=== PATIENT | male | born 1940 | race Caucasian/White ===

== ENCOUNTER 2018-02-11 12:14 | Inpatient (IN) ==
[2018-02-11] MEDS ORDERED: ZALEPLON 5 MG CAPSULE PO PRN (12:19)
[2018-02-11] MEDS ORDERED: MAGNESIUM SULF RIDER 4 GM in PREMIX 1 EACH IV PRN (12:19)
[2018-02-11] MEDS ORDERED: MAGNESIUM SULF RIDER 2 GM in PREMIX 1 EACH IV PRN (12:19)
[2018-02-11] MEDS ORDERED: ONDANSETRON 4 MG/2 ML VIAL IV PRN (12:19)
[2018-02-11] MEDS ORDERED: ACETAMINOPHEN 325 MG TABLET PO PRN (12:19)
[2018-02-11] MEDS ORDERED: PNEUMOCOCCAL VACCINE (13 VALENT) 0.5 ML SYRINGE IM ONE (14:30)
[2018-02-11] MEDS ORDERED: INFLUENZA VIRUS VACCINE 0.5 ML SYRINGE IM ONE (14:30)
[2018-02-11] MEDS: APIXABAN 5 MG TABLET PO SCH ×2 (14:34→21:39)
[2018-02-11] MEDS: dilTIAZem Drip 125 MG/125 ML PREMIX IV SCH (14:36)
[2018-02-11 16:25] LABS: Basophils % 0.2 % (0.0-0.8); Eosinophils # 0.1 10*3/uL (0.0-0.87); Eosinophils % 0.7 % (0.00-10.9); Hematocrit 40.2 VOL% (42.0-52.0); Hemoglobin 12.9 GM/DL (14.0-18.0); Immature Granulocytes % 0.5 %; Immature Granulocytes Absolute 0.04 #; Lymphocytes # 1.4 10*3/uL (1.4-4.0); Lymphocytes % 16.2 % (21.2-54.2); Mean Corpuscular HGB Conc 32.1 GM/DL (32-36); Mean Corpuscular Hemoglobin 33 PG (27-34); Mean Corpuscular Volume 102.8 FL (87-102); Mean Platelet Volume 10.7 FL (9.6-12.0); Monocytes # 0.6 10*3/uL (0.11-0.8); Monocytes % 6.8 % (1.7-12.7); Neutrophils # 6.5 10*3/uL (1.4-7.4); Neutrophils % 75.6 % (38.7-73.9); Platelet Count 106 T/CUMM (130-400); Red Blood Count 3.91 MC/CUMM (3.8-5.5); Red Cell Distribution Width 13.6 % (9.3-17.3); White Blood Count 8.6 T/CUMM (4-12)
[2018-02-11 17:02] LABS: Calcium 8.8 MG/DL (8.5-10.1); Osmolality,Calculated 284.1 MOS/KG (273-304); Risk Ratio 2.27; Thyroid Stimulating Hormone 1.04 uIU/ml (0.358-3.74); VLDL CHOLESTEROL 12.2 MG/DL
[2018-02-11 20:53] LABS: Apearance,Urine CLEAR (Clear); Bacteria,Urine Occasional /HPF (Few); Bilirubin,Urine Negative (Negative); Blood, Urine Negative (Negative); Glucose,Urine (UA) Negative (Negative); Hyaline Casts,Urine 4 /LPF (0-3); Ketones,Urine 5 mg/dL (Negative); Mucus,Urine Occasional /LPF (Occasional); Nitrite,Urine Negative (Negative); Protein,Urine Negative; Squamous Epithelial Cell,Urine Occasional /HPF (0-10); Urine Color Yellow (Yellow); Urine Specific Gravity 1.023 (1.001-1.035); Urine Urobilinogen < 2.0 EU/DL (0.2-1.0); WBC,Urine 1 /HPF (0-6)
[2018-02-11] MEDS ORDERED: PRAVASTATIN 40 MG TABLET PO SCH (21:00)
[2018-02-11] MEDS: METOPROLOL TARTRATE 25 MG TABLET PO SCH (21:40)
[2018-02-11] MEDS: DILTIAZEM 30 MG TABLET PO SCH (21:40)
[2018-02-12] MEDS: PANTOPRAZOLE 40 MG TABLET PO SCH (08:46)
[2018-02-12] MEDS: APIXABAN 5 MG TABLET PO SCH (08:46)
[2018-02-12] MEDS: DILTIAZEM 30 MG TABLET PO SCH ×3 (08:46→20:52)
[2018-02-12] MEDS: METOPROLOL TARTRATE 25 MG TABLET PO SCH ×2 (08:46→20:52)
[2018-02-12] MEDS: ASPIRIN EC 81 MG TABLET PO SCH (08:46)
[2018-02-12] MEDS ORDERED: POTASSIUM CHLORIDE RIDER 10 MEQ in PREMIX 1 EACH IV PRN (09:32)
[2018-02-12] MEDS ORDERED: MAGNESIUM SULF RIDER 2 GM in PREMIX 1 EACH IV PRN (09:32)
[2018-02-12] MEDS: NICOTINE 21 MG/24 HR PATCH TRANSDERM SCH (09:38)
[2018-02-12] MEDS ORDERED: SODIUM CHLORIDE 0.9% 1,000 ML IV SCH (10:00)
[2018-02-12] MEDS: PRAVASTATIN 40 MG TABLET PO SCH (11:25)
[2018-02-12] MEDS ORDERED: diphenhydrAMINE CAP 25 MG CAPSULE PO ONE (13:00)
[2018-02-12] MEDS ORDERED: DIAZEPAM 5 MG TABLET PO ONE (13:00)
[2018-02-12] MEDS: dilTIAZem Drip 125 MG/125 ML PREMIX IV SCH (13:06)
[2018-02-12] MEDS ORDERED: NITROGLYCERIN DRIP 50 MG/250 ML BOTTLE IV ONE (13:17)
[2018-02-12] MEDS ORDERED: MIDAZOLAM 2 MG/2 ML VIAL ONE ×2 (13:17→14:39)
[2018-02-12] MEDS ORDERED: LIDOCAINE 1% 20 ML VIAL ONE (13:17)
[2018-02-12] MEDS ORDERED: HEPARIN/NACL 0.9% 2 UNITS/ML 1,000 ML IV ONE (13:17)
[2018-02-12] MEDS ORDERED: fentaNYL 100 MCG/2 ML VIAL ONE ×2 (13:18→14:39)
[2018-02-12] MEDS ORDERED: VERAPAMIL 5 MG/2 ML VIAL ONE (13:18)
[2018-02-12] MEDS ORDERED: LIDOCAINE 2% 5 ML VIAL ONE (14:39)
[2018-02-12] MEDS ORDERED: PHENYLEPHRINE 1 MG/10 ML SYRINGE IV ONE (14:39)
[2018-02-12] MEDS ORDERED: PROPOFOL 200 MG/20 ML VIAL IV ONE (14:40)
[2018-02-13 04:07] LABS: Basophils % 0.2 % (0.0-0.8); Eosinophils # 0.1 10*3/uL (0.0-0.87); Eosinophils % 1.4 % (0.00-10.9); Hematocrit 37.4 VOL% (42.0-52.0); Hemoglobin 12.2 GM/DL (14.0-18.0); Immature Granulocytes % 0.5 %; Immature Granulocytes Absolute 0.04 #; Lymphocytes # 1.3 10*3/uL (1.4-4.0); Lymphocytes % 14.8 % (21.2-54.2); Mean Corpuscular HGB Conc 32.6 GM/DL (32-36); Mean Corpuscular Hemoglobin 33 PG (27-34); Mean Corpuscular Volume 101.4 FL (87-102); Mean Platelet Volume 11.3 FL (9.6-12.0); Monocytes # 0.7 10*3/uL (0.11-0.8); Monocytes % 7.8 % (1.7-12.7); Neutrophils # 6.5 10*3/uL (1.4-7.4); Neutrophils % 75.3 % (38.7-73.9); Red Blood Count 3.69 MC/CUMM (3.8-5.5); Red Cell Distribution Width 13.3 % (9.3-17.3); White Blood Count 8.6 T/CUMM (4-12)
[2018-02-13 04:12] LABS: Platelet Count 93 T/CUMM (130-400)
[2018-02-13 04:35] LABS: Calcium 8.5 MG/DL (8.5-10.1); Osmolality,Calculated 281.3 MOS/KG (273-304); Potassium 4.9 MMOL/L (3.5-5.1)
[2018-02-13 08:05] VITALS: BP 163/93
[2018-02-13 08:58] LABS: ABG Base Excess -1.4 MMOL/L (-2.5-2.5); ABG HCO3 23.2 MMOL/L (20-26); ABG Oxygen Saturation 96.3 % (95-100); ABG PCO2 32.6 MM HG (35-48); ABG PH 7.435 (7.35-7.45)
[2018-02-13] MEDS: PRAVASTATIN 40 MG TABLET PO SCH (09:23)
[2018-02-13] MEDS: DILTIAZEM 30 MG TABLET PO SCH (09:24)
[2018-02-13] MEDS: PANTOPRAZOLE 40 MG TABLET PO SCH (09:24)
[2018-02-13] MEDS: METOPROLOL TARTRATE 25 MG TABLET PO SCH (09:24)
[2018-02-13] MEDS: ASPIRIN EC 81 MG TABLET PO SCH (09:24)
[2018-02-13] MEDS: NICOTINE 21 MG/24 HR PATCH TRANSDERM SCH (09:25)
== END 2018-02-13 11:30 | disposition home or self-care, planned readmission (81) | DRG 287 ==
LOC: N.2W 13:17 → INTOOBSV 13:17 → N.TELES 15:19
PROVIDERS: ADMIT Internal Medicine Cardiovascular Disease; ATTEND Internal Medicine Cardiovascular Disease

== ENCOUNTER 2019-02-18 13:14 | Inpatient (IN) ==
[2019-02-18] MEDS ORDERED: SODIUM CHLORIDE 0.9% 1,000 ML IV STA ×2 (13:28→15:32)
[2019-02-18 14:33] LABS: Basophils % 0.2 % (0.0-0.8); Eosinophils % 0.1 % (0.00-10.9); Hematocrit 33.4 VOL% (42.0-52.0); Hemoglobin 10.9 GM/DL (14.0-18.0); Immature Granulocytes Absolute 0.22 #; Lymphocytes # 0.1 10*3/uL (1.4-4.0); Lymphocytes % 1.2 % (21.2-54.2); Mean Corpuscular HGB Conc 32.6 GM/DL (32-36); Mean Corpuscular Volume 99.7 FL (87-102); Monocytes % 0.2 % (1.7-12.7); NRBC # 0.04 10*3/uL; Neutrophils % 96.3 % (38.7-73.9); Platelet Count 111 T/CUMM (130-400); Red Blood Count 3.35 MC/CUMM (3.8-5.5); Red Cell Distribution Width 15.1 % (9.3-17.3); White Blood Count 10.8 T/CUMM (4-12)
[2019-02-18 14:47] LABS: Albumin 2.9 G/DL (3.4-5.0); Bilirubin,Total 1.2 MG/DL (0.2-1.0); Calcium 8.6 MG/DL (8.5-10.1); Osmolality,Calculated 289.8 MOS/KG (273-304); Total Protein 6.2 G/DL (6.4-8.3)
[2019-02-18 15:02] LABS: Hypochromasia 1+; Lymphocytes 5 % (20-55); Microcytosis 1+; Platelet Estimate Adequate; Segmented Neutrophils 94 % (50-85); Total Cells Counted 100
[2019-02-18 15:03] LABS: Anisocytosis Slight
[2019-02-18 15:24] LABS: PT Patient Result 11.2 SECS (9.6-12.2); Partial Thromboplastin Time 26.2 SECS (20.8-36.0)
[2019-02-18 16:02] LABS: Apearance,Urine CLOUDY (Clear); Bilirubin,Urine Negative (Negative); Blood, Urine Large mg/dL (Negative); Glucose,Urine (UA) Negative (Negative); Hyaline Casts,Urine 23 /LPF (0-3); Ketones,Urine Negative (Negative); Nitrite,Urine Positive (Negative); Protein,Urine 100 MG/DL; RBC,Urine 3211 /HPF (0-4); Urine Color Amber (Yellow); Urine Specific Gravity 1.018 (1.001-1.035)
[2019-02-18] MEDS ORDERED: SODIUM CHLORIDE 0.9% 2,150 ML IV ONE (16:27)
[2019-02-18] MEDS ORDERED: SODIUM PHOSPHATE ENEMA 133 ML BOTTLE RECTAL STA (16:29)
[2019-02-18 16:30] LABS: Hepatitis B Core IgM Quant < 0.05 Index; Hepatitis B Surface Ag Quant 0.19 Index; Hepatitis B Surface Ag Result Negative (Negative); Hepatitis C Virus Ab Quant 0.15 Index; Hepatitis C Virus Ab Result Negative (Negative)
[2019-02-18] MEDS ORDERED: VANCOMYCIN INJ 1,000 MG in SODIUM CHLORIDE 0.9% 250 ML IV SCH (16:30)
[2019-02-18] MEDS ORDERED: LACTULOSE 20 GM/30 ML UDCUP PO STA (16:30)
[2019-02-18] MEDS ORDERED: NICOTINE 21 MG/24 HR PATCH TRANSDERM PRN (17:19)
[2019-02-18] MEDS ORDERED: LACTULOSE 20 GM/30 ML UDCUP PO PRN (17:19)
[2019-02-18] MEDS ORDERED: SODIUM CHLORIDE 0.45% 1,000 ML IV SCH (17:30)
[2019-02-18] MEDS ORDERED: PIPERACILLIN/TAZOBACTAM 3,375 MG in SODIUM CHLORIDE 0.9% 100 ML IV ONE (17:30)
[2019-02-18] MEDS: ACETAMINOPHEN 325 MG TABLET PO PRN ×2 (17:43→23:50)
[2019-02-18] MEDS ORDERED: PNEUMOCOCCAL VACCINE (13 VALENT) 0.5 ML SYRINGE IM ONE (19:38)
[2019-02-18] MEDS: DOCUSATE SODIUM 100 MG CAPSULE PO SCH (21:05)
[2019-02-18] MEDS ORDERED: NOREPINEPHRINE 4 MG/4 ML VIAL IV ONE (22:52)
[2019-02-18] MEDS ORDERED: NOREPINEPHRINE 8 MG in SODIUM CHLORIDE 0.9% 242 ML IV PRN (23:00)
[2019-02-19] MEDS: PIPERACILLIN/TAZOBACTAM 3,375 MG in SODIUM CHLORIDE 0.9% 100 ML IV SCH ×2 (01:02→08:08)
[2019-02-19 03:00] LABS: Basophils # 0.1 10*3/uL (0.0-0.2); Basophils % 0.3 % (0.0-0.8); Hematocrit 26.2 VOL% (42.0-52.0); Hemoglobin 8.5 GM/DL (14.0-18.0); Immature Granulocytes % 4.7 %; Immature Granulocytes Absolute 1.63 #; Lymphocytes # 0.3 10*3/uL (1.4-4.0); Mean Corpuscular HGB Conc 32.4 GM/DL (32-36); Mean Corpuscular Volume 100.8 FL (87-102); Mean Platelet Volume 11.5 FL (9.6-12.0); Monocytes % 4.7 % (1.7-12.7); Neutrophils % 89.3 % (38.7-73.9); Platelet Count 95 T/CUMM (130-400); Red Cell Distribution Width 15.4 % (9.3-17.3); White Blood Count 34.4 T/CUMM (4-12)
[2019-02-19 03:11] LABS: Albumin 2.2 G/DL (3.4-5.0); Bilirubin,Total 0.8 MG/DL (0.2-1.0); Calcium 7.6 MG/DL (8.5-10.1); Osmolality,Calculated 288.3 MOS/KG (273-304); Total Protein 5.1 G/DL (6.4-8.3)
[2019-02-19 04:32] LABS: Anisocytosis 1+; Band Neutrophils 19 % (0-10); Lymphocytes 1 % (20-55); Platelet Estimate Decreased; Segmented Neutrophils 79 % (50-85); Total Cells Counted 100
[2019-02-19] MEDS: DOCUSATE SODIUM 100 MG CAPSULE PO SCH ×2 (08:08→21:10)
[2019-02-19] MEDS: AMIODARONE 200 MG TABLET PO SCH (08:08)
[2019-02-19] MEDS: PANTOPRAZOLE 40 MG TABLET PO SCH (08:08)
[2019-02-19] MEDS: MULTIVITAMIN (CENTRUM) TABLET PO SCH (08:08)
[2019-02-19] MEDS: POLYETHYLENE GLYCOL POWDER 17 GM PACK PO SCH (08:27)
[2019-02-19] MEDS: LEVOFLOXACIN INJ 750 MG in PREMIX 1 EACH IV SCH (08:55)
[2019-02-19] MEDS ORDERED: DOCUSATE SODIUM 100 MG CAPSULE PO SCH (09:00)
[2019-02-19] MEDS: MAGNESIUM SULF RIDER 2 GM in PREMIX 1 EACH IV PRN (10:10)
[2019-02-19] MEDS: MEROPENEM 500 MG in SODIUM CHLORIDE 0.9% 100 ML IV SCH ×2 (10:10→18:11)
[2019-02-19] MEDS: LACTATED RINGERS 1,000 ML IV SCH ×2 (10:10→21:36)
[2019-02-20] MEDS: MEROPENEM 500 MG in SODIUM CHLORIDE 0.9% 100 ML IV SCH ×3 (02:42→17:36)
[2019-02-20 05:44] LABS: Basophils # 0.1 10*3/uL (0.0-0.2); Basophils % 0.3 % (0.0-0.8); Eosinophils % 0.1 % (0.00-10.9); Hematocrit 26.3 VOL% (42.0-52.0); Hemoglobin 8.6 GM/DL (14.0-18.0); Immature Granulocytes % 7.1 %; Immature Granulocytes Absolute 1.89 #; Lymphocytes # 0.5 10*3/uL (1.4-4.0); Mean Corpuscular HGB Conc 32.7 GM/DL (32-36); Mean Corpuscular Volume 98.9 FL (87-102); Mean Platelet Volume 11.8 FL (9.6-12.0); Monocytes % 3.4 % (1.7-12.7); Neutrophils % 87.1 % (38.7-73.9); Platelet Count 72 T/CUMM (130-400); Red Blood Count 2.66 MC/CUMM (3.8-5.5); Red Cell Distribution Width 15.6 % (9.3-17.3); White Blood Count 26.8 T/CUMM (4-12)
[2019-02-20 06:17] LABS: Albumin 2.2 G/DL (3.4-5.0); Band Neutrophils 5 % (0-10); Bilirubin,Total 0.6 MG/DL (0.2-1.0); Calcium 8.2 MG/DL (8.5-10.1); Lymphocytes 2 % (20-55); Osmolality,Calculated 286.3 MOS/KG (273-304); Segmented Neutrophils 90 % (50-85); Total Cells Counted 100; Total Protein 5.4 G/DL (6.4-8.3)
[2019-02-20 06:18] LABS: Microcytosis 1+; Ovalocytes Slight; Platelet Estimate Decreased
[2019-02-20] MEDS: AMIODARONE 200 MG TABLET PO SCH (08:04)
[2019-02-20] MEDS: DOCUSATE SODIUM 100 MG CAPSULE PO SCH ×2 (08:04→20:47)
[2019-02-20] MEDS: PANTOPRAZOLE 40 MG TABLET PO SCH (08:04)
[2019-02-20] MEDS: POLYETHYLENE GLYCOL POWDER 17 GM PACK PO SCH ×2 (08:04→10:28)
[2019-02-20] MEDS: MULTIVITAMIN (CENTRUM) TABLET PO SCH (08:04)
[2019-02-20] MEDS: LACTATED RINGERS 1,000 ML IV SCH ×2 (08:18→15:18)
[2019-02-20] MEDS: ACETAMINOPHEN 325 MG TABLET PO PRN (08:37)
[2019-02-20] MEDS ORDERED: PNEUMOCOCCAL VACCINE (13 VALENT) 0.5 ML SYRINGE IM ONE (09:00)
[2019-02-20] MEDS ORDERED: MAGNESIUM HYDROXIDE SUSP 30 ML UDCUP PO ONE (09:46)
[2019-02-20] MEDS ORDERED: BISACODYL 5 MG TABLET PO ONE (09:46)
[2019-02-20] MEDS ORDERED: LACTULOSE 20 GM/30 ML UDCUP PO ONE (09:46)
[2019-02-20] MEDS: METOPROLOL SUCCINATE XL 25 MG TABLET PO SCH (15:17)
[2019-02-20] MEDS: TAMSULOSIN 0.4 MG CAPSULE PO SCH (20:47)
[2019-02-21] MEDS: LACTATED RINGERS 1,000 ML IV SCH ×2 (01:05→14:02)
[2019-02-21] MEDS: MEROPENEM 500 MG in SODIUM CHLORIDE 0.9% 100 ML IV SCH ×2 (01:05→09:39)
[2019-02-21 05:58] LABS: Basophils # 0.1 10*3/uL (0.0-0.2); Basophils % 0.4 % (0.0-0.8); Eosinophils # 0.1 10*3/uL (0.0-0.87); Eosinophils % 0.4 % (0.00-10.9); Hematocrit 24.8 VOL% (42.0-52.0); Hemoglobin 8.3 GM/DL (14.0-18.0); Immature Granulocytes % 1.8 %; Immature Granulocytes Absolute 0.33 #; Lymphocytes # 0.5 10*3/uL (1.4-4.0); Lymphocytes % 2.9 % (21.2-54.2); Mean Corpuscular HGB Conc 33.5 GM/DL (32-36); Mean Corpuscular Volume 97.6 FL (87-102); Mean Platelet Volume 12.1 FL (9.6-12.0); Monocytes % 2.8 % (1.7-12.7); Neutrophils % 91.7 % (38.7-73.9); Red Blood Count 2.54 MC/CUMM (3.8-5.5); White Blood Count 18.1 T/CUMM (4-12)
[2019-02-21 06:01] LABS: Platelet Count 65 T/CUMM (130-400)
[2019-02-21 06:21] LABS: Albumin 1.9 G/DL (3.4-5.0); Bilirubin,Total 0.6 MG/DL (0.2-1.0); Calcium 8.1 MG/DL (8.5-10.1); Osmolality,Calculated 283.3 MOS/KG (273-304)
[2019-02-21 07:14] LABS: Band Neutrophils 1 % (0-10); Eosinophils 2 % (0-10); Hypochromasia 2+; Lymphocytes 3 % (20-55); Platelet Estimate Decreased; Segmented Neutrophils 92 % (50-85); Total Cells Counted 100
[2019-02-21] MEDS: AMIODARONE 200 MG TABLET PO SCH (08:03)
[2019-02-21] MEDS: METOPROLOL SUCCINATE XL 25 MG TABLET PO SCH (08:03)
[2019-02-21] MEDS: POLYETHYLENE GLYCOL POWDER 17 GM PACK PO SCH (08:04)
[2019-02-21] MEDS: DOCUSATE SODIUM 100 MG CAPSULE PO SCH ×2 (08:04→23:22)
[2019-02-21] MEDS: MULTIVITAMIN (CENTRUM) TABLET PO SCH (08:04)
[2019-02-21] MEDS: ACETAMINOPHEN 325 MG TABLET PO PRN ×2 (08:04→19:25)
[2019-02-21] MEDS: PANTOPRAZOLE 40 MG TABLET PO SCH (08:04)
[2019-02-21] MEDS: LEVOFLOXACIN INJ 750 MG in PREMIX 1 EACH IV SCH (08:04)
[2019-02-21] MEDS ORDERED: DILTIAZEM 60 MG TABLET PO SCH (09:00)
[2019-02-21] MEDS: TAMSULOSIN 0.4 MG CAPSULE PO SCH (23:22)
[2019-02-22] MEDS: LACTATED RINGERS 1,000 ML IV SCH ×3 (00:11→20:46)
[2019-02-22] MEDS: ACETAMINOPHEN 325 MG TABLET PO PRN (00:16)
[2019-02-22] MEDS: MULTIVITAMIN (CENTRUM) TABLET PO SCH (09:11)
[2019-02-22] MEDS: METOPROLOL SUCCINATE XL 25 MG TABLET PO SCH (09:13)
[2019-02-22] MEDS: POLYETHYLENE GLYCOL POWDER 17 GM PACK PO SCH ×2 (09:13→21:30)
[2019-02-22] MEDS: PANTOPRAZOLE 40 MG TABLET PO SCH (09:13)
[2019-02-22] MEDS: AMIODARONE 200 MG TABLET PO SCH (09:13)
[2019-02-22] MEDS: DOCUSATE SODIUM 100 MG CAPSULE PO SCH ×2 (09:18→21:26)
[2019-02-22 10:23] LABS: Basophils # 0.1 10*3/uL (0.0-0.2); Basophils % 0.4 % (0.0-0.8); Eosinophils % 0.2 % (0.00-10.9); Hematocrit 22.9 VOL% (42.0-52.0); Hemoglobin 7.7 GM/DL (14.0-18.0); Immature Granulocytes % 2.3 %; Immature Granulocytes Absolute 0.32 #; Lymphocytes # 0.6 10*3/uL (1.4-4.0); Lymphocytes % 3.9 % (21.2-54.2); Mean Corpuscular HGB Conc 33.6 GM/DL (32-36); Mean Corpuscular Volume 97.9 FL (87-102); Monocytes % 5.8 % (1.7-12.7); Neutrophils % 87.4 % (38.7-73.9); Platelet Count 54 T/CUMM (130-400); Red Blood Count 2.34 MC/CUMM (3.8-5.5); Red Cell Distribution Width 15.1 % (9.3-17.3); White Blood Count 14.2 T/CUMM (4-12)
[2019-02-22 10:39] LABS: Osmolality,Calculated 288.8 MOS/KG (273-304)
[2019-02-22 11:01] LABS: Band Neutrophils 2 % (0-10); Hypochromasia 1+; Lymphocytes 4 % (20-55); Segmented Neutrophils 90 % (50-85); Total Cells Counted 100
[2019-02-22 11:04] LABS: Macrocytosis Slight; Platelet Estimate Decreased
[2019-02-22] MEDS: CIPROFLOXACIN INJ 400 MG in PREMIX 1 EACH IV SCH (12:18)
[2019-02-22] MEDS: LACTULOSE 20 GM/30 ML UDCUP PO SCH ×2 (12:19→21:29)
[2019-02-22] MEDS: cefTAZidime 1,000 MG in SYRINGE 1 EACH IV SCH (13:23)
[2019-02-22] MEDS: NORTRIPTYLINE 25 MG CAPSULE PO SCH (21:26)
[2019-02-22] MEDS: TAMSULOSIN 0.4 MG CAPSULE PO SCH (21:26)
[2019-02-23] MEDS: cefTAZidime 1,000 MG in SYRINGE 1 EACH IV SCH ×2 (01:26→12:13)
[2019-02-23] MEDS: CIPROFLOXACIN INJ 400 MG in PREMIX 1 EACH IV SCH ×2 (01:28→12:16)
[2019-02-23 05:32] LABS: Basophils # 0.1 10*3/uL (0.0-0.2); Basophils % 0.6 % (0.0-0.8); Eosinophils # 0.1 10*3/uL (0.0-0.87); Eosinophils % 0.6 % (0.00-10.9); Hematocrit 26.2 VOL% (42.0-52.0); Hemoglobin 8.8 GM/DL (14.0-18.0); Immature Granulocytes % 2.8 %; Lymphocytes # 0.5 10*3/uL (1.4-4.0); Lymphocytes % 4.1 % (21.2-54.2); Mean Corpuscular HGB Conc 33.6 GM/DL (32-36); Mean Corpuscular Volume 96.3 FL (87-102); Neutrophils % 87.9 % (38.7-73.9); Platelet Count 57 T/CUMM (130-400); Red Blood Count 2.72 MC/CUMM (3.8-5.5); White Blood Count 10.9 T/CUMM (4-12)
[2019-02-23 05:56] LABS: Calcium 8.2 MG/DL (8.5-10.1); Osmolality,Calculated 277.5 MOS/KG (273-304)
[2019-02-23 06:39] LABS: Lymphocytes 4 % (20-55); Platelet Estimate Decreased; Polychromasia Few; Segmented Neutrophils 95 % (50-85); Total Cells Counted 100
[2019-02-23] MEDS: ACETAMINOPHEN 325 MG TABLET PO PRN ×2 (07:11→15:59)
[2019-02-23] MEDS: LACTATED RINGERS 1,000 ML IV SCH ×3 (07:11→18:34)
[2019-02-23] MEDS: MULTIVITAMIN (CENTRUM) TABLET PO SCH (08:38)
[2019-02-23] MEDS: LACTULOSE 20 GM/30 ML UDCUP PO SCH ×2 (08:39→23:16)
[2019-02-23] MEDS: DOCUSATE SODIUM 100 MG CAPSULE PO SCH ×2 (08:40→21:14)
[2019-02-23] MEDS: METOPROLOL SUCCINATE XL 25 MG TABLET PO SCH (08:40)
[2019-02-23] MEDS: PANTOPRAZOLE 40 MG TABLET PO SCH (08:40)
[2019-02-23] MEDS: POLYETHYLENE GLYCOL POWDER 17 GM PACK PO SCH ×2 (08:41→23:16)
[2019-02-23 10:18] LABS: Amorphous Crystals,Urine Occasional /HPF (Few); Apearance,Urine CLEAR (Clear); Bacteria,Urine Occasional /HPF (Few); Bilirubin,Urine Negative (Negative); Blood, Urine Negative (Negative); Glucose,Urine (UA) Negative (Negative); Ketones,Urine Negative (Negative); Mucus,Urine Occasional /LPF (Occasional); Nitrite,Urine Negative (Negative); Protein,Urine Negative; RBC,Urine 1 /HPF (0-4); Squamous Epithelial Cell,Urine Occasional /HPF (0-10); Urine Color Yellow (Yellow); Urine Urobilinogen < 2.0 EU/DL (0.2-1.0); WBC,Urine <1 /HPF (0-6)
[2019-02-23] MEDS: MAGNESIUM SULF RIDER 2 GM in PREMIX 1 EACH IV PRN (19:25)
[2019-02-23] MEDS: TAMSULOSIN 0.4 MG CAPSULE PO SCH (21:14)
[2019-02-23] MEDS: NORTRIPTYLINE 25 MG CAPSULE PO SCH (21:14)
[2019-02-24] MEDS: CIPROFLOXACIN INJ 400 MG in PREMIX 1 EACH IV SCH ×2 (01:03→15:10)
[2019-02-24] MEDS: cefTAZidime 1,000 MG in SYRINGE 1 EACH IV SCH ×2 (01:45→15:05)
[2019-02-24] MEDS: LACTATED RINGERS 1,000 ML IV SCH ×2 (06:41→11:12)
[2019-02-24 06:44] LABS: Basophils # 0.1 10*3/uL (0.0-0.2); Basophils % 0.6 % (0.0-0.8); Eosinophils # 0.1 10*3/uL (0.0-0.87); Eosinophils % 0.6 % (0.00-10.9); Hematocrit 22.2 VOL% (42.0-52.0); Hemoglobin 7.3 GM/DL (14.0-18.0); Immature Granulocytes % 2.3 %; Lymphocytes # 0.6 10*3/uL (1.4-4.0); Lymphocytes % 7.5 % (21.2-54.2); Mean Corpuscular HGB Conc 32.9 GM/DL (32-36); Mean Corpuscular Volume 97.4 FL (87-102); Monocytes % 5.3 % (1.7-12.7); Neutrophils % 83.7 % (38.7-73.9); Platelet Count 44 T/CUMM (130-400); Red Blood Count 2.28 MC/CUMM (3.8-5.5); White Blood Count 8.6 T/CUMM (4-12)
[2019-02-24 07:13] LABS: Hypochromasia 1+; Lymphocytes 8 % (20-55); Platelet Estimate Decreased; Segmented Neutrophils 86 % (50-85); Total Cells Counted 100
[2019-02-24 07:30] LABS: Calcium 7.6 MG/DL (8.5-10.1); Osmolality,Calculated 286.8 MOS/KG (273-304)
[2019-02-24] MEDS: LACTULOSE 20 GM/30 ML UDCUP PO SCH ×2 (08:43→22:21)
[2019-02-24] MEDS: DOCUSATE SODIUM 100 MG CAPSULE PO SCH ×2 (08:43→22:21)
[2019-02-24] MEDS: METOPROLOL SUCCINATE XL 25 MG TABLET PO SCH (08:43)
[2019-02-24] MEDS: MULTIVITAMIN (CENTRUM) TABLET PO SCH (08:43)
[2019-02-24] MEDS: PANTOPRAZOLE 40 MG TABLET PO SCH (08:43)
[2019-02-24] MEDS: POLYETHYLENE GLYCOL POWDER 17 GM PACK PO SCH ×2 (08:44→22:22)
[2019-02-24] MEDS ORDERED: SODIUM CHLORIDE 0.9% 1,000 ML IV PRN (08:48)
[2019-02-24] MEDS: NORTRIPTYLINE 25 MG CAPSULE PO SCH (22:19)
[2019-02-24] MEDS: TAMSULOSIN 0.4 MG CAPSULE PO SCH (22:21)
[2019-02-25] MEDS: CIPROFLOXACIN INJ 400 MG in PREMIX 1 EACH IV SCH ×3 (00:53→23:37)
[2019-02-25] MEDS: cefTAZidime 1,000 MG in SYRINGE 1 EACH IV SCH (02:58)
[2019-02-25 06:35] LABS: Basophils # 0.1 10*3/uL (0.0-0.2); Basophils % 0.6 % (0.0-0.8); Eosinophils # 0.1 10*3/uL (0.0-0.87); Eosinophils % 0.6 % (0.00-10.9); Hematocrit 28.4 VOL% (42.0-52.0); Hemoglobin 9.6 GM/DL (14.0-18.0); Immature Granulocytes % 2.3 %; Immature Granulocytes Absolute 0.22 #; Lymphocytes # 0.6 10*3/uL (1.4-4.0); Lymphocytes % 5.9 % (21.2-54.2); Mean Corpuscular HGB Conc 33.8 GM/DL (32-36); Mean Corpuscular Volume 93.4 FL (87-102); Mean Platelet Volume 13.1 FL (9.6-12.0); Monocytes % 6.1 % (1.7-12.7); Neutrophils % 84.5 % (38.7-73.9); Red Blood Count 3.04 MC/CUMM (3.8-5.5); Red Cell Distribution Width 15.7 % (9.3-17.3); White Blood Count 9.6 T/CUMM (4-12)
[2019-02-25 06:38] LABS: Platelet Count 53 T/CUMM (130-400)
[2019-02-25 07:00] LABS: Albumin 1.8 G/DL (3.4-5.0); Bilirubin,Total 1.5 MG/DL (0.2-1.0); Calcium 7.9 MG/DL (8.5-10.1); Osmolality,Calculated 277.5 MOS/KG (273-304); Total Protein 4.9 G/DL (6.4-8.3)
[2019-02-25 07:06] LABS: Hypochromasia 1+; Lymphocytes 5 % (20-55); Ovalocytes Slight; Platelet Estimate Decreased; Segmented Neutrophils 91 % (50-85); Total Cells Counted 100
[2019-02-25] MEDS: METOPROLOL SUCCINATE XL 25 MG TABLET PO SCH (09:31)
[2019-02-25] MEDS: PANTOPRAZOLE 40 MG TABLET PO SCH (09:32)
[2019-02-25] MEDS: MULTIVITAMIN (CENTRUM) TABLET PO SCH (09:32)
[2019-02-25] MEDS: DOCUSATE SODIUM 100 MG CAPSULE PO SCH ×2 (09:32→21:45)
[2019-02-25] MEDS: LACTULOSE 20 GM/30 ML UDCUP PO SCH ×2 (09:37→21:46)
[2019-02-25] MEDS: POLYETHYLENE GLYCOL POWDER 17 GM PACK PO SCH ×2 (09:37→21:45)
[2019-02-25] MEDS: LACTATED RINGERS 1,000 ML IV SCH (11:20)
[2019-02-25] MEDS: TAMSULOSIN 0.4 MG CAPSULE PO SCH (21:45)
[2019-02-25] MEDS: NORTRIPTYLINE 25 MG CAPSULE PO SCH (21:46)
[2019-02-26 05:38] LABS: Basophils % 0.4 % (0.0-0.8); Eosinophils # 0.1 10*3/uL (0.0-0.87); Eosinophils % 0.8 % (0.00-10.9); Hematocrit 31.6 VOL% (42.0-52.0); Hemoglobin 10.8 GM/DL (14.0-18.0); Immature Granulocytes % 1.7 %; Immature Granulocytes Absolute 0.13 #; Lymphocytes # 0.6 10*3/uL (1.4-4.0); Lymphocytes % 8.1 % (21.2-54.2); Mean Corpuscular HGB Conc 34.2 GM/DL (32-36); Mean Corpuscular Volume 93.8 FL (87-102); Mean Platelet Volume 12.9 FL (9.6-12.0); Monocytes % 5.9 % (1.7-12.7); Neutrophils % 83.1 % (38.7-73.9); Platelet Count 67 T/CUMM (130-400); Red Blood Count 3.37 MC/CUMM (3.8-5.5); Red Cell Distribution Width 15.5 % (9.3-17.3); White Blood Count 7.7 T/CUMM (4-12)
[2019-02-26 06:06] LABS: Lymphocytes 1 % (20-55); Platelet Estimate Decreased; Polychromasia Few; Segmented Neutrophils 96 % (50-85); Total Cells Counted 100
[2019-02-26] MEDS: POLYETHYLENE GLYCOL POWDER 17 GM PACK PO SCH (09:14)
[2019-02-26] MEDS: MULTIVITAMIN (CENTRUM) TABLET PO SCH (09:15)
[2019-02-26] MEDS: LACTULOSE 20 GM/30 ML UDCUP PO SCH (09:15)
[2019-02-26] MEDS: DOCUSATE SODIUM 100 MG CAPSULE PO SCH (09:16)
[2019-02-26] MEDS: METOPROLOL SUCCINATE XL 25 MG TABLET PO SCH (09:16)
[2019-02-26] MEDS: PANTOPRAZOLE 40 MG TABLET PO SCH (09:16)
[2019-02-26 12:02] VITALS: BP 113/63
[2019-02-26] MEDS: LACTATED RINGERS 1,000 ML IV SCH (15:24)
[2019-02-26] MEDS: CIPROFLOXACIN INJ 400 MG in PREMIX 1 EACH IV SCH (15:24)
== END 2019-02-26 15:32 | DRG 871 ==
LOC: EDBD → EDUNIT# → N.EDINP 13:14 → N.ED 13:14 → SUATTDRO 17:19 → INTOOBSV 17:19 → OBSVTOIN 17:19 → N.5E 17:46 → N.ICU 22:44 → SUATTDRO 02-19 12:49 → N.3E 02-20 11:19
PROVIDERS: ADMIT Hospitalist; ATTEND Internal Medicine